=== PATIENT | female | born 1935 | race African-American/Black ===

== ENCOUNTER 2018-12-06 16:21 | Inpatient (IN) | payer MEDICARE, OTHER ==
[~2018-12-06] VITALS: Ht 160 cm; Wt 52.4 kg
[~2018-12-06 16:21] MED LIST: AMLO5TAB66 PO; ASPI-825 PO; CHOL10002 PO; DONE5TAB33 PO; FAMO20 PO; METO-416 PO; MULT-1259 PO; OLME1TAB10 PO; POTA20TA11 PO; SIMV80TA91 PO; VITA400T9 PO
[2018-12-06 20:47] LABS: BASOPHILS % (AUTO) 0.9 % (0.0-2.0); EOSINOPHILS % (AUTO) 1.5 % (1.0-6.0); HEMATOCRIT 31.8 % (36-46); HEMOGLOBIN 10.4 g/dL (12.0-16.0); LYMPHOCYTES # (AUTO) 1.1 K/uL (1.0-4.8); LYMPHOCYTES % (AUTO) 16.8 % (22.0-44.0); MEAN CORPUSCULAR HEMOGLOBIN 25.7 pg (26.0-34.0); MEAN CORPUSCULAR HGB CONC 32.8 G/dL (31.0-37.0); MEAN CORPUSCULAR VOLUME 78 fL (80-100); MONOCYTES # (AUTO) 0.6 K/uL (0.1-1.0); MONOCYTES % (AUTO) 8.5 % (2.0-9.0); NEUTROPHILS # (AUTO) 4.7 K/uL (1.8-7.7); NEUTROPHILS % (AUTO) 72.3 % (40.0-70.0); PLATELET COUNT (AUTO) 264 K/uL (150-450); RED BLOOD CELL COUNT(AUTO) 4.06 MIL/uL (4.00-5.20); RED CELL DISTRIBUTION WIDTH 16.1 % (11.5-14.5)
[2018-12-06 20:57] LABS: INR 1.2 (0.9-1.1); PROTHROMBIN TIME 12.6 SEC (9.4-11.6)
[2018-12-06 20:58] LABS: ANION GAP 10 mmol/L (8-16); CALCIUM, TOTAL 9.5 mg/dL (8.8-10.5); CARBON DIOXIDE 29 mmol/L (22-29); CHLORIDE 101 mmol/L (98-107); CREATININE 0.96 mg/dL (0.60-1.30); GLOMERULAR FILTR. RATE CALC > 60 mL/min (>60); GLUCOSE,RANDOM 94 mg/dL (70-110); POTASSIUM 3.9 mmol/L (3.5-5.1); SODIUM SERUM 140 mmol/L (136-145); UREA NITROGEN, BLOOD 18 mg/dL (7-18)
[2018-12-06 21:09] LABS: B-TYPE NATRIURETIC PEPTIDE 434 pg/mL (0-100)
[2018-12-06 21:23] LABS: ALANINE AMINOTRANSFERASE 14 U/L (12-78); ALBUMIN 2.9 g/dL (3.4-5.0); ALKALINE PHOSPHATASE 107 U/L (46-116); ASPARTATE AMINOTRANSFERASE 26 U/L (15-37); BILIRUBIN,TOTAL 0.6 mg/dL (0.1-1.0); CREATINE KINASE, TOTAL ONLY 75 U/L (26-192); TOTAL PROTEIN, SERUM 7.5 g/dL (6.4-8.2)
[2018-12-06] MEDS ORDERED: ONDANSETRON HCL 4 MG/2 ML VIAL IVP ONE (22:00)
[2018-12-06] MEDS ORDERED: MORPHINE SULFATE 2 MG/ML SYRINGE IVP ONE (22:00)
[2018-12-06 22:02] LABS: APPEARANCE,URINE CLEAR (CLEAR); BILIRUBIN,URINE NEGATIVE (NEGATIVE); GLUCOSE, URINE (UA) NEGATIVE (NEGATIVE); KETONES,URINE NEGATIVE (NEGATIVE); LEUKOCYTE ESTERASE ,URINE SMALL (NEGATIVE); NITRATE,URINE NEGATIVE (NEGATIVE); OCCULT BLOOD,URINE NEGATIVE (NEGATIVE); PH,URINE 6.5 (5.0-8.0); PROTEIN,URINE NEGATIVE (NEGATIVE)
[2018-12-06 22:22] LABS: BACTERIA,URINE Moderate /HPF (None Seen); RBC,URINE 0-2 /HPF (0-2); SQUAMOUS EPITHELIAL CELL,UR Many /LPF (None Seen)
[2018-12-06] MEDS ORDERED: CefTRIAXone 1 GM/DEXTROSE 50 ML IV ONE (22:45)
[2018-12-07] MEDS ORDERED: SODIUM CHLORIDE 0.9% 1,000 ML IV ONE (00:15)
[2018-12-07] MEDS ORDERED: ONDANSETRON HCL 4 MG/2 ML VIAL IVP PRN (00:15)
[2018-12-07] MEDS ORDERED: ZOLPIDEM TARTRATE 5 MG TABLET PO PRN (00:15)
[2018-12-07] MEDS ORDERED: OxyCODONE HCL/ACETAMINOPHEN 5-325 MG TABLET PO PRN (00:15)
[2018-12-07] MEDS ORDERED: ACETAMINOPHEN 325 MG TABLET PO PRN (00:15)
[2018-12-07 00:36] LABS: C-REACTIVE PROTEIN QUANT 1.94 mg/dL (0.00-0.30)
[2018-12-07 00:59] VITALS: BP 124/64
[2018-12-07 01:32] LABS: ERYTHROCYTE SEDIMENTATION RATE 15 MM/HR (0-20)
[2018-12-07 04:34] VITALS: BP 123/65
[2018-12-07] MEDS: HYDROCHLOROTHIAZIDE 25 MG TABLET PO SCH (08:11)
[2018-12-07] MEDS: AmLODIPine BESYLATE 10 MG TABLET PO SCH (08:11)
[2018-12-07] MEDS: HEPARIN SODIUM,PORCINE 5,000 UNITS/ML VIAL SQ SCH ×2 (08:11→16:00)
[2018-12-07] MEDS: PANTOPRAZOLE SODIUM 40 MG DR TABLET PO SCH (08:11)
[2018-12-07] MEDS: METOPROLOL SUCCINATE 50 MG ER TABLET PO SCH ×2 (08:12→20:20)
[2018-12-07] MEDS: OLMESARTAN MEDOXOMIL 40 MG TABLET PO SCH (08:13)
[2018-12-07] MEDS ORDERED: [UNRECOGNIZED DRUG - OTHER] PO SCH (09:00)
[2018-12-07 10:15] VITALS: BP 126/61
[2018-12-07 12:01] VITALS: BP_SYST 109; BP_SYST 115; BP_DIAS 56; BP_DIAS 71
[2018-12-07 15:17] VITALS: BP 98/43
[2018-12-07 20:07] VITALS: BP 100/50
[2018-12-07] MEDS: CefTRIAXone 1 GM/DEXTROSE 50 ML IV SCH (21:17)
[2018-12-08] VITALS (7 sets, daily range): BP systolic 105–131; BP diastolic 57–76
[2018-12-08 06:25] LABS: BASOPHILS % (AUTO) 0.6 % (0.0-2.0); EOSINOPHILS % (AUTO) 2.2 % (1.0-6.0); HEMATOCRIT 28.2 % (36-46); HEMOGLOBIN 9.1 g/dL (12.0-16.0); LYMPHOCYTES # (AUTO) 1.4 K/uL (1.0-4.8); LYMPHOCYTES % (AUTO) 22.3 % (22.0-44.0); MEAN CORPUSCULAR HEMOGLOBIN 25.6 pg (26.0-34.0); MEAN CORPUSCULAR HGB CONC 32.4 G/dL (31.0-37.0); MEAN CORPUSCULAR VOLUME 79 fL (80-100); MONOCYTES # (AUTO) 0.6 K/uL (0.1-1.0); MONOCYTES % (AUTO) 10.2 % (2.0-9.0); NEUTROPHILS # (AUTO) 4.1 K/uL (1.8-7.7); NEUTROPHILS % (AUTO) 64.7 % (40.0-70.0); PLATELET COUNT (AUTO) 219 K/uL (150-450); RED BLOOD CELL COUNT(AUTO) 3.56 MIL/uL (4.00-5.20); RED CELL DISTRIBUTION WIDTH 16.2 % (11.5-14.5)
[2018-12-08 06:37] LABS: ANION GAP 7 mmol/L (8-16); CALCIUM, TOTAL 9.1 mg/dL (8.8-10.5); CARBON DIOXIDE 30 mmol/L (22-29); CHLORIDE 102 mmol/L (98-107); CREATININE 0.85 mg/dL (0.60-1.30); GLUCOSE,RANDOM 100 mg/dL (70-110); POTASSIUM 3.5 mmol/L (3.5-5.1); SODIUM SERUM 139 mmol/L (136-145); UREA NITROGEN, BLOOD 13 mg/dL (7-18)
[2018-12-08 06:57] LABS: GLOMERULAR FILTR. RATE CALC > 60 mL/min (>60)
[2018-12-08] MEDS: OLMESARTAN MEDOXOMIL 40 MG TABLET PO SCH (09:00)
[2018-12-08] MEDS: PANTOPRAZOLE SODIUM 40 MG DR TABLET PO SCH (09:02)
[2018-12-08] MEDS: HEPARIN SODIUM,PORCINE 5,000 UNITS/ML VIAL SQ SCH ×4 (09:02→23:40)
[2018-12-08] MEDS: AmLODIPine BESYLATE 10 MG TABLET PO SCH (09:03)
[2018-12-08] MEDS: HYDROCHLOROTHIAZIDE 25 MG TABLET PO SCH (09:03)
[2018-12-08] MEDS: METOPROLOL SUCCINATE 50 MG ER TABLET PO SCH ×2 (09:03→20:36)
[2018-12-08] MEDS ORDERED: SODIUM CHLORIDE 0.9% 1,000 ML IV ONE (09:15)
[2018-12-08] MEDS ORDERED: BARIUM SULFATE 0.1% SUSPENSION 450 ML BOTTLE ONE (14:21)
[2018-12-08] MEDS ORDERED: SODIUM CHLORIDE 0.9% 100 ML ONE (16:15)
[2018-12-08] MEDS ORDERED: IOVERSOL 350 MG/ML 100 ML VIAL ONE (16:15)
[2018-12-08] MEDS: CefTRIAXone 1 GM/DEXTROSE 50 ML IV SCH (23:40)
[2018-12-09 04:16] VITALS: BP 135/70
[2018-12-09 06:47] LABS: ANION GAP 8 mmol/L (8-16); CALCIUM, TOTAL 9.3 mg/dL (8.8-10.5); CARBON DIOXIDE 30 mmol/L (22-29); CHLORIDE 99 mmol/L (98-107); CREATININE 0.67 mg/dL (0.60-1.30); GLUCOSE,RANDOM 87 mg/dL (70-110); POTASSIUM 3.3 mmol/L (3.5-5.1); SODIUM SERUM 137 mmol/L (136-145); UREA NITROGEN, BLOOD 9 mg/dL (7-18)
[2018-12-09 06:49] LABS: GLOMERULAR FILTR. RATE CALC > 60 mL/min (>60)
[2018-12-09] MEDS: HEPARIN SODIUM,PORCINE 5,000 UNITS/ML VIAL SQ SCH ×2 (08:12→16:00)
[2018-12-09] MEDS: PANTOPRAZOLE SODIUM 40 MG DR TABLET PO SCH (08:13)
[2018-12-09] MEDS: AmLODIPine BESYLATE 10 MG TABLET PO SCH (08:13)
[2018-12-09] MEDS: METOPROLOL SUCCINATE 50 MG ER TABLET PO SCH (08:13)
[2018-12-09] MEDS: OLMESARTAN MEDOXOMIL 40 MG TABLET PO SCH (08:13)
[2018-12-09] MEDS: HYDROCHLOROTHIAZIDE 25 MG TABLET PO SCH (08:15)
[2018-12-09 09:11] VITALS: BP 110/61
[2018-12-09] MEDS ORDERED: AMLO-512 PO (11:52)
[2018-12-09] MEDS ORDERED: SIMV-260 PO (11:52)
[2018-12-09] MEDS ORDERED: POTASSIUM CHL 10 MEQ/WATER 50 ML IV PRN (12:00)
[2018-12-09] MEDS ORDERED: POTASSIUM CHLORIDE 20 MEQ ER TABLET PO PRN (12:00)
[2018-12-09] MEDS: CefTRIAXone 1 GM/DEXTROSE 50 ML IV SCH (14:42)
[2018-12-09] MEDS ORDERED: LEVOFLOXACIN 500 MG TABLET PO ONE (15:45)
== END 2018-12-09 16:50 | disposition home or self-care (01) | DRG 542 ==
LOC: EMS 16:21 → 5S 12-07 00:01
PROVIDERS: ADMIT Internal Medicine; ATTEND Internal Medicine
DX: C79.51 Secondary malignant neoplasm of bone (principal); E43 Unspecified severe protein-calorie malnutrition; N39.0 Urinary tract infection, site not specified; M89.58 Osteolysis, other site; I49.9 Cardiac arrhythmia, unspecified; I10 Essential (primary) hypertension; F03.90 Unspecified dementia, unspecified severity, without behavioral disturbance, psychotic disturbance, mood disturbance, and anxiety; E88.09 Other disorders of plasma-protein metabolism, not elsewhere classified; D64.9 Anemia, unspecified; Z68.20 Body mass index [BMI] 20.0-20.9, adult; J43.9 Emphysema, unspecified; I25.10 Atherosclerotic heart disease of native coronary artery without angina pectoris; I27.21 Secondary pulmonary arterial hypertension; J84.10 Pulmonary fibrosis, unspecified; M12.9 Arthropathy, unspecified; E87.6 Hypokalemia; D50.9 Iron deficiency anemia, unspecified; R59.1 Generalized enlarged lymph nodes; Z95.1 Presence of aortocoronary bypass graft
CPT/HCPCS: 70450; 71260; 72125; 72193; 73502; 74160; 83735; 84155; 84165; 85651; 86140; 87086; 93005; 96374; 96375; 97162; 97165; 97535; G0378; J0696; J1644; J2270; J2405; J7030; J7050